=== PATIENT | male | born 1985 | race Caucasian/White ===

== ENCOUNTER 2021-03-18 11:27 | Emergency (ER) | payer OTHER ==
[~2021-03-18 11:27] MED LIST: CYCLOBENZAPRINE5 MG PO; IBUPROFEN800 MG PO; ONDANSETRON ODT4 MG PO; TESSALON PERLE100 MG PO; VIBRAMYCIN100 MG PO
[2021-03-18 12:50] LABS: HEMOGLOBIN 14.6 gm/dl (14.0-17.5); RED BLOOD COUNT 4.98 M/UL (4.20-5.50); WHITE BLOOD COUNT 9.5 K/UL (4.5-11.0)
[2021-03-18 13:18] LABS: BUN/CREATININE RATIO 13 (0-10)
== END 2021-03-18 17:06 | disposition home or self-care (01) ==
LOC: ER1 11:27
DX: M79.601 Pain in right arm (principal); R07.9 Chest pain, unspecified; Z20.822 Contact with and (suspected) exposure to COVID-19
CPT/HCPCS: 71045; 80053; 82550; 82553; 83874; 84484; 85025; 85379; 85652; 93005; 96374; 99285; J1885; U0002